=== PATIENT | male | born 1960 | race Caucasian/White ===

== ENCOUNTER 2016-10-14 10:08 | Emergency (ER) | payer OTHER ==
[~2016-10-14] VITALS: Ht 182.9 cm; Wt 101.0 kg
[2016-10-14 10:09] VITALS: BP 175/100; PULSE 98; RESP 24; TEMP 98.8; O2SAT 100
--- NOTE | 2016-10-14 11:02 | PD ---
HPI Chief Complaint: Bite or Sting Time Seen by Provider: 11:01 Travel History International Travel<30 days: No Contact w/Intl Traveler<30days: No Traveled to known affect area: No History of Present Illness HPI 56 YO right-hand dominant male presents to the ED for evaluation of multiple dog bites sustained approximately 2 hours before arrival.The patient is a hot air furnace installer and repairer. He states that he approached the doorway of a home, a pit bull came through the dog door and began to attack him. He states that he was knocked to the ground. He states that he cleaned the wounds with alcohol and peroxide and the homeowner applied Neosporin ointment and bandages immediately after the injury. He states that the homeowner assured him that the dog is current on its vaccinations. He states that his tetanus immunization is up-to-date. [facility] Social History Tobacco Use: No Allergies-Medications (Allergen,Severity, Reaction): Coded Allergies: No Known Allergies (Unverified , 10/14/16) Reported Meds & Prescriptions Reported Meds & Active Scripts Active Robaxin (Methocarbamol) 500 Mg Tab 1,000 Mg PO TID Tramadol (Tramadol HCl) 50 Mg Tab 50 Mg PO Q8H PRN Augmentin (Amoxicillin-Clavulanate) 875-125 Mg Tab 1 Tab PO BID 5 Days Review of Systems Except as stated in HPI: all other systems reviewed are Neg Physical Exam Narrative GENERAL: Well-nourished, well-developed patient. SKIN: Focused skin assessment warm/dry. There are numerous abrasions, superficial lacerations and ecchymosis of all extremities. There is a 1.5 cm puncture/laceration in the interdigital space between the thumb and first finger of the right hand. There is a subcentimeter puncture wound of the hypothenar eminence of the right hand. There is a 1.5 cm laceration of the tuft of the thumb of the left hand. There is a 5 cm laceration of the lateral aspect of the left knee. This does not disrupt the fascia. The compartment of the knee is not disrupted. There are 5 approximate 1 cm linear abrasions and 2 subcentimeter puncture wounds of the of the midline of the left posterior thigh , just beneath the buttocks. There is a 3 cm abrasion of the lateral aspect of the left posterior thigh with 2 subcentimeter puncture wounds. There are 2 subcentimeter puncture wounds of the left posterior calf. There is a 3 x 5 cm abrasion of the anterior lateral right thigh. There is a 2 cm superficial laceration and one 7 L puncture wound 2 of the right anterior calf. HEAD: Normocephalic. EYES: No scleral icterus. No injection or drainage. NECK: Supple, trachea midline. No JVD or lymphadenopathy. CARDIOVASCULAR: Regular rate and rhythm without murmurs, gallops, or rubs. RESPIRATORY: Breath sounds equal bilaterally. No accessory muscle use. GASTROINTESTINAL: Abdomen soft, non-tender, nondistended. MUSCULOSKELETAL: No cyanosis, or edema. 2+ DP pulses of the bilateral lower extremities. The patient maintains full, active, painless range of motion of the joints of the lower extremities bilaterally. Neurovascularly intact in the lower extremities bilaterally. FOCUSED RIGHT UPPER EXTREMITY EXAM: 2+ radial pulse. Patient maintains full, active, painless range of motion of the joints of the hand and the wrist. Strong finger to thumb opposition on each finger. Sensation intact to light touch on each finger distally. Cap refill less than 2 seconds. FOCUSED LEFT UPPER EXTREMITY EXAM: 2+ radial pulse. The patient maintains full , active, painless TONYA of the joints of the hand and wrist. There is strong finger to thumb opposition on each digit. Sensation is intact to light touch in each digit distally, cap refill less than 2 seconds. BACK: Nontender without obvious deformity. No CVA tenderness. Data Data Last Documented VS Vital Signs Date Time Temp Pulse Resp B/P Pulse Ox O2 Delivery O2 Flow Rate FiO2 10/14/16 10:09 98.8 98 24 175/100 100 Room Air Orders Lidocaine 1% Inj (50 Ml) (Xylocaine 1% I (10/14/16 11:30) Acetamin-Hydrocod 325-7.5 Mg (Hershey 7.5 (10/14/16 11:30) Amoxicil-Clavulanate (Augmentin) (10/14/16 13:00) MDM Medical Decision Making Medical Screen Exam Complete: Yes Emergency Medical Condition: Yes Differential Diagnosis Contusion versus abrasion versus laceration versus puncture wound versus animal bite versus other Narrative Course 56 YO right-hand dominant male presents to the ED for evaluation of multiple dog bites sustained approximately 2 hours before arrival. He cleaned the wounds with alcohol and peroxide and the dog's mate first applied Neosporin ointment and bandages immediately after the injury. He states that the homeowner assured him that the dog is current on its vaccinations. Tetanus immunization is up-to- date. Vitals reviewed. Physical exam reveals a well-appearing white male in no acute distress. He does have multiple wounds of the extremities. Including puncture wounds of bilateral hands, and multiple sites of the left leg. There is a laceration of the lateral aspect of the left leg. The patient's wounds were irrigated with a total of 7 Irrimax devices. Multiple laceration repairs were performed. Please see my procedure notes for details. Patient was prescribed a course of Augmentin, first dose administered in the ED. He was prescribed a short course of pain medications and muscle relaxants, provided no real excuse for work. He is instructed to keep the wounds clean, dry, covered, return to the ED for evaluation of the wounds within 48 hours. He was given wound care instructions. He indicated understanding of the instructions and is agreeable to the care plan. He is stable and discharged home. Procedures Procedure Narrative LACERATION LOCATION: Left anterior lateral knee LENGTH: 5 cm NUMBER OF STITCHES/LAURA: 3 deep, 7 superficial REPAIR: The area of the laceration was prepped with Betadine and sterilely draped. The laceration was infiltrated with 1% lidocaine. The wound was copiously irrigated and explored without evidence of foreign body, tendon injury or neurovascular injury. The wound was closed using 3-0 Vicryl and 3-0 Prolene. This was a single layer repair. A sterile dressing was applied. The patient was advised to keep the dressing clean and dry. Patient tolerated the procedure well. LACERATION LOCATION: Tuft of left thumb LENGTH: 1.5 cm NUMBER OF STITCHES/LAURA: 1 REPAIR: The area of the laceration was prepped with Betadine and sterilely draped. The laceration was infiltrated with 1% lidocaine. The wound was copiously irrigated and explored without evidence of foreign body, tendon injury or neurovascular injury. The wound was closed using 4-0 Vicryl. This was a single layer repair. A sterile dressing was applied. The patient was advised to keep the dressing clean and dry. Patient tolerated the procedure well. LACERATION LOCATION: Interdigital space of the thumb and first finger right hand LENGTH: 1.5 cm NUMBER OF STITCHES/LAURA: 2 REPAIR: The area of the laceration was prepped with Betadine and sterilely draped. The laceration was infiltrated with 1% lidocaine. The wound was copiously irrigated and explored without evidence of foreign body, tendon injury or neurovascular injury. The wound was closed using 4-0 Prolene. This was a single layer repair. A sterile dressing was applied. The patient was advised to keep the dressing clean and dry. Patient tolerated the procedure well. Diagnosis Primary Impression: Dog bite of multiple sites Additional Impressions: Dog bite of right thigh Qualified Code: S71.151A - Dog bite of right thigh, initial encounter Dog bite of left knee Qualified Code: S81.052A - Dog bite of left knee, initial encounter Dog bite of left hand Qualified Code: S61.452A - Dog bite of left hand, initial encounter Dog bite of right hand Qualified Code: S61.451A - Dog bite of right hand, initial encounter Referrals: Workers Comp Patient Instructions: Acute Wound Care (ED), Animal Bite (ED), Care For Your Stitches (ED), General Instructions Additional Instructions: Rest, hydrate. Keep your wounds clean, dry and covered. Take antibiotics as prescribed. Take pain medications and muscle relaxants as needed for pain and muscle spasm. Do not drive while taking pain medications and muscle relaxants. Return to the ED in 48 hours for wound recheck. Monitor wounds for signs of infection as discussed, return to the ED sooner if these arise. Follow-up with the Worker's Comp. department at your place of employment. Return to ED for any urgent or emergent medical condition. Med/Other Pt SpecificInfo: Prescription(s) given Scripts Methocarbamol (Robaxin)500 Mg Tab1,000 Mg PO TID #10 TAB Ref 0 Prov:Carissa Knight MD 10/14/16 Tramadol 50 Mg Tab50 Mg PO Q8H PRN (PAIN) #10 TAB Ref 0 Prov:Carissa Knight MD 10/14/16 Amoxicillin-Clavulanate (Augmentin)875-125 Mg Tab1 Tab PO BID 5 Days Ref 0 Prov:Carissa Knight MD 10/14/16 Disposition: 01 DISCHARGE HOME Condition: Stable Terri Manzo Oct 14, 2016 11:02
[2016-10-14] MEDS ORDERED: AUGM875T3 PO (11:21)
[2016-10-14] MEDS ORDERED: LIDOCAINE HCL 1% 50 ML VIAL INFIL ONE (11:30)
[2016-10-14] MEDS ORDERED: ACETAMINOPHEN/HYDROcodone 325 MG/7.5 MG TAB PO ONE (11:30)
[2016-10-14] MEDS ORDERED: ROBA500T PO (12:59)
[2016-10-14] MEDS ORDERED: TRAM50TA PO (12:59)
[2016-10-14] MEDS ORDERED: AMOXICILLIN/CLAVULANATE K 875 MG TAB PO ONE (13:00)
== END 2016-10-14 13:16 | disposition home or self-care (01) ==
LOC: NEPD 10:08
DX: S81.052A Open bite, left knee, initial encounter (principal); S71.151A Open bite, right thigh, initial encounter; S61.452A Open bite of left hand, initial encounter; S61.451A Open bite of right hand, initial encounter; W54.0XXA Bitten by dog, initial encounter; Y99.0 Civilian activity done for income or pay
CPT/HCPCS: 12004